=== PATIENT | female | born 1945 ===

== ENCOUNTER 2017-01-02 10:07 | Day surgery (SDC) | payer MEDICARE, BC, OTHER ==
[2017-01-02] MEDS ORDERED: MIDAZOLAM 2 MG/2 ML SOL ONE (11:09)
[2017-01-02] MEDS ORDERED: FENTANYL 100MCG/2ML SOL ONE (11:09)
[2017-01-02] MEDS ORDERED: KETOROLAC TROMETHAMINE 30 MG/ML SOL ONE (11:11)
[2017-01-02] MEDS ORDERED: ONDANSETRON HCL 4 MG/2 ML SOL ONE (11:11)
[2017-01-02] MEDS ORDERED: PROPOFOL 10 MG/ML EMU IV ONE ×2 (11:11→12:13)
[2017-01-02] MEDS ORDERED: CEFAZOLIN SODIUM 1 GM PDS ONE (11:18)
[2017-01-02] MEDS: LIDOCAINE HCL 1% MPF SOL ONE ×2 (11:41→12:09)
[2017-01-02] MEDS ORDERED: APAP/CODEINE 300/30 TAB ONE (12:53)
[2017-01-02] MEDS ORDERED: APAP/CODEINE 300/30 TAB PO ONE (12:54)
[2017-01-02 13:42] VITALS: BP 152/82; PULSE 59; RESP 20; TEMP 97; O2SAT 98
== END 2017-01-02 13:55 | disposition home or self-care (01) | DRG 561 ==
LOC: SURG 10:07
PROVIDERS: ATTEND Orthopaedic Surgery
DX: Z47.2 Encounter for removal of internal fixation device (principal); Z87.81 Personal history of (healed) traumatic fracture
CPT/HCPCS: 76000; J0690; J1885; J2250; J2405; J3010; J2001; J2704

== ENCOUNTER 2017-11-06 14:32 | Emergency (ER) | payer MEDICARE, BC, OTHER ==
[2017-11-06 14:43] VITALS: BP 146/92; PULSE 84; RESP 18; TEMP 97.3; O2SAT 99
[2017-11-06 15:00] LABS: APPEARANCE,URINE Slightly Cloudy; BILIRUBIN,URINE 1+ (NEGATIVE); GLUCOSE, URINE (UA) NEGATIVE (NEGATIVE); KETONES,URINE 2+ (NEGATIVE); LEUKOCYTE ESTERASE ,URINE 2+ (NEGATIVE); NITRATE,URINE NEGATIVE (NEGATIVE); OCCULT BLOOD,URINE 2+ (NEG-TRACE)
[2017-11-06 15:21] LABS: COLOR,URINE Yellow; ICTOTEST,URINE NEGATIVE (NEGATIVE)
[2017-11-06 15:22] LABS: BACTERIA 1+ (< 1+); CRYSTALS NEGATIVE (0-3 AVE/HPF); WBC,URINE 75-80 (0-5AV/HPF)
== END 2017-11-06 15:57 | disposition home or self-care (01) | DRG 948 ==
LOC: ED 14:32
DX: R53.1 Weakness (principal); N39.0 Urinary tract infection, site not specified; J20.9 Acute bronchitis, unspecified
CPT/HCPCS: 81001; 87088; 99282; 99283